=== PATIENT | female | born 1930 | race Caucasian/White ===

== ENCOUNTER 2017-04-19 09:55 | Emergency (ER) | payer MEDICARE, MEDICAID ==
[2017-04-19 10:11] VITALS: BMI 24.4
[2017-04-19] MEDS ORDERED: Sodium Chloride 0.9% 1,000 ML IV STA (10:31)
--- NOTE | 2017-04-19 10:34 | ED PDOC ---
Arrival/HPI - General Time Seen by Provider: 04/19/17 10:15 Historian: Patient, Family (Daughter who translated for patient) - History of Present Illness Narrative History of Present Illness (Text): 04/19/17 10:31 A 87 year old female, whose past medical history includes hypertension, osteoporosis and arthritis, presents to the emergency department complaining of generalized weakness. History obtained through daughter who translated for patient. Daughter reports patient has not been sleeping or eating well. She reports patient loss 30 pounds over the past 6 months. Patient complains of left lower leg pain for 1 week, but denies any fever, chills, nausea, vomiting, diarrhea, abdominal pain, chest pain, shortness of breath or any other complaints. PMD: Non-H provider Time/Duration: Other Symptom Course: Unchanged Quality: Other Context: Home Past Medical History - Provider Review Nursing Documentation Reviewed: Yes Family/Social History - Physician Review Nursing Documentation Reviewed: Yes Family/Social History: No Known Family HX Allergies/Home Meds Allergies/Adverse Reactions: Allergies No Known Allergies Allergy (Verified 04/19/17 10:10) Home Medications: Home Meds Medication Instructions Recorded Confirmed Aspirin [Ecotrin] 81 mg PO DAILY 04/19/17 04/19/17 Bimatoprost [Lumigan 2.5 ml] 2.5 ml OP HS 04/19/17 04/19/17 Brimonidine Tartrate [Alphagan P 5 ml OU BID 04/19/17 04/19/17 0.1 % Ophth] Dexlansoprazole [Dexilant] 60 mg PO DAILY 04/19/17 04/19/17 Donepezil HCl [Aricept] 10 mg PO DAILY 04/19/17 04/19/17 Ergocalciferol [Drisdol 50,000 1.25 mg PO QWK 04/19/17 04/19/17 Intl Units Cap] Gabapentin [Neurontin] 300 mg PO BID 04/19/17 04/19/17 Melatonin [Melatonin] 10 mg PO HS 04/19/17 04/19/17 Metoprolol Tartrate [Lopressor] 100 mg PO DAILY 04/19/17 04/19/17 Naproxen 375 mg PO DAILY 04/19/17 04/19/17 Timolol 0.25% Ophth [Timoptic 0.25 % OU BID 04/19/17 04/19/17 0.25% Ophth Soln] amLODIPine [Norvasc] 10 mg PO DAILY 04/19/17 04/19/17 Review of Systems - Physician Review All systems were reviewed & negative as marked: Yes - Review of Systems Constitutional: Fatigue, Weight Change, Other (decrease sleep). absent: Fevers , Night Sweats Respiratory: absent: SOB Cardiovascular: absent: Chest Pain Gastrointestinal: Appetite Changes. absent: Abdominal Pain, Diarrhea, Nausea, Vomiting Musculoskeletal: Other (left lower extremity pain) Physical Exam - Physical Exam Narrative Physical Exam (Text): Constitutional: No acute distress. Head: Normocephalic. Atraumatic. Eyes: PERRL. ENT: Moist mucous membranes. Neck: Supple. Cardiovascular: Regular rate. Chest: No tenderness. Respiratory: Clear to auscultation bilaterally. GI: Soft. Nontender. Nondistended. Back: No CVA tenderness. Musculoskeletal: No tenderness, swelling or erythema to left lower extremity. No tenderness or swelling of extremities. Skin: No rash. Neurologic: Alert, no focal deficit. Vital Signs Reviewed: Yes Vital Signs Temp Pulse Resp BP Pulse Ox 04/19/17 13:12 98.1 F 74 19 167/76 H 96 04/19/17 11:56 98 F 77 19 146/71 95 04/19/17 09:56 98.1 F 80 18 171/94 H 97 Temperature: Afebrile Blood Pressure: Hypertensive Pulse: Regular Respiratory Rate: Normal Appearance: Positive for: Well-Appearing, Non-Toxic, Comfortable Pain Distress: None Mental Status: Positive for: Alert and Oriented X 3 Medical Decision Making ED Course and Treatment: Spoke with reproduction technician, states ultrasound is negative for DVT. Report Date : 04/19/2017 12:57:13 Procedure: Chest xray Dictator : Jordan Vasquez MD IMPRESSION: No active disease. - Lab Interpretations Lab Results: 04/19/17 10:40 04/19/17 10:40 Lab Results 04/19/17 13:00: Urine Color Yellow, Urine Appearance Clear, Urine pH 7.5, Ur Specific [place] 1.015, Urine Protein Negative, Urine Glucose (UA) Negative, Urine Ketones 15 H, Urine Blood Negative, Urine Nitrate Negative, Urine Bilirubin Negative, Urine Urobilinogen 0.2, Ur Leukocyte Esterase Negative 04/19/17 10:40: Sodium 145, Potassium 3.7, Chloride 109 H, Carbon Dioxide 27, Anion Gap 13, BUN 10, Creatinine 0.6 L, Est GFR ( Amer) > 60, Est GFR ( Non-Af Amer) > 60, Random Glucose 103, Calcium 10.0, Total Bilirubin 1.3, AST 26 , ALT 28, Alkaline Phosphatase 70, Total Protein 7.4, Albumin 4.2, Globulin 3.2 , Albumin/Globulin Ratio 1.3 04/19/17 10:40: WBC 4.7, RBC 4.79, Hgb 12.6, Hct 40.3, MCV 84.1, MCH 26.3, MCHC 31.3, RDW 14.6 H, Plt Count 286, MPV 9.6, Gran % 72.1 H, Lymph % (Auto) 17.1 L, [place] % (Auto) 9.3 H, Eos % (Auto) 1.1 L, Baso % (Auto) 0.4, Gran # 3.41, Lymph # 0.8 L, [place] # 0.4, Eos # 0.1, Baso # 0.02 I have reviewed the lab results: Yes - RAD Interpretation Radiology Orders: 04/19/17 10:31 CHEST PORTABLE [RAD] Stat DUPLEX LOWER EXTRM VEIN LEFT [US] Stat - Medication Orders Current Medication Orders: Sodium Chloride (Sodium Chloride 0.9%) 1,000 mls @ 300 mls/hr IV .Q3H20M STA Stop: 04/19/17 13:50 Last Admin: 04/19/17 11:54 Dose: 300 mls/hr eMAR Start Stop Document 04/19/17 11:54 [place] (Rec: 04/19/17 11:54 [place] [facility] [id number]) Intravenous Solution Start Date 04/19/17 Start Time 11:00 Discontinued Medications Ketorolac Tromethamine (Toradol) 30 mg IVP STAT STA Stop: 04/19/17 12:57 Last Admin: 04/19/17 13:26 Dose: 30 mg MAR Pain Assessment Document 04/19/17 13:26 SRE (Rec: 04/19/17 13:28 SRE [id number]) Pain Reassessment Is this a pain reassessment? Yes Sleep Is patient sleeping during reassessment? No Presence of Pain Presence of Pain Yes Pain Scale Used Pain Scale Used Numeric Location Left, Right or Bilateral Bilateral Pain Location Body Site Leg Description Description Intermittent IVP Administration Document 04/19/17 13:26 SRE (Rec: 04/19/17 13:28 SRE [id number]) Charges for Administration # of IVP Administrations 1 - Scribe Statement The provider has reviewed the documentation as recorded by the Scribe Milly Barnes Provider Scribe Attestation: All medical record entries made by the Scribe were at my direction and personally dictated by me. I have reviewed the chart and agree that the record accurately reflects my personal performance of the history, physical exam, medical decision making, and the department course for this patient. I have also personally directed, reviewed, and agree with the discharge instructions and disposition. Disposition/Present on Arrival - Present on Arrival Any Indicators Present on Arrival: No - Disposition Have Diagnosis and Disposition been Completed?: Yes Diagnosis: Loss of appetite Disposition: HOME/ ROUTINE Disposition Time: 13:00 Patient Plan: Discharge Condition: STABLE Discharge Instructions (ExitCare): Insomnia (ED) Referrals: Rachna Jiménez, [Primary Care Provider] - Follow up with primary
[2017-04-19 11:03] LABS: BASO # 0.02 K/mm3 (0.0-2.0); BASO % 0.4 % (0.0-3.0); EOS # 0.1 (0.0-0.7); EOS % 1.1 % (1.5-5.0); GRAN # 3.41 (1.4-6.5); GRAN % 72.1 % (50.0-68.0); HEMATOCRIT 40.3 % (36.0-48.0); LYMPH # 0.8 (1.2-3.4); LYMPH % 17.1 % (22.0-35.0); MEAN CELL VOLUME 84.1 fl (80.0-105.0); MEAN CORPUSCULAR HEMOGLOBIN 26.3 pg (25.0-35.0); MEAN CORPUSCULAR HGB CONC 31.3 g/dl (31.0-37.0); MEAN PLATELET VOLUME 9.6 fl (7.0-11.0); MONO # 0.4 (0.1-0.6); MONO % 9.3 % (1.0-6.0); RED CELL DISTRIBUTION WIDTH 14.6 % (11.5-14.5); WHITE BLOOD COUNT 4.7 10^3/ul (4.5-11.0)
[2017-04-19 11:06] LABS: ALB/GLOB RATIO 1.3 (1.1-1.8); ALKALINE PHOSPHATASE 70 U/L (38-126); ALT/SGPT 28 U/L (7-56); AST/SGOT 26 U/L (14-36); BILIRUBIN,TOTAL 1.3 mg/dL (0.2-1.3); BLOOD UREA NITROGEN 10 mg/dL (7-21); CARBON DIOXIDE 27 mmol/L (21-33); CHLORIDE 109 mmol/L (98-107); GFR AFRICAN-AMERICAN > 60; GLUCOSE,RANDOM 103 mg/dL (70-110); POTASSIUM 3.7 mmol/L (3.6-5.0); SODIUM 145 mmol/L (132-148); TOTAL PROTEIN 7.4 g/dL (5.8-8.3)
--- NOTE | 2017-04-19 12:59 | RAD ---
HISTORY: weakness COMPARISON: No prior. FINDINGS: LUNGS: No active pulmonary disease. PLEURA: No significant pleural effusion identified, no pneumothorax apparent. CARDIOVASCULAR: Mild cardiomegaly OSSEOUS STRUCTURES: No significant abnormalities. VISUALIZED UPPER ABDOMEN: Normal. OTHER FINDINGS: None. IMPRESSION: No active disease.
[2017-04-19 13:12] VITALS: RESP 19
[2017-04-19 13:15] LABS: PH,URINE 7.5 (4.7-8.0); URINE BILIRUBIN NEGATIVE (NEGATIVE); URINE BLOOD NEGATIVE (NEGATIVE); URINE GLUCOSE (UA) NEGATIVE (NEGATIVE); URINE KETONE 15 mg/dL (NEGATIVE); URINE LEUKOCYTE ESTERASE NEGATIVE Leu/uL (NEGATIVE); URINE PROTEIN NEGATIVE mg/dL (<30 mg/dL); URINE UROBILINOGEN 0.2 E.U./dL (<1 E.U./dL)
[2017-04-19 13:16] LABS: URINE APPEARANCE CLEAR (CLEAR); URINE COLOR YELLOW (YELLOW)
[2017-04-19 13:17] VITALS: BP 167/76; PULSE 74; TEMP 98.1; O2SAT 96
--- NOTE | 2017-04-19 15:38 | US ---
PROCEDURE: Left lower extremity venous US HISTORY: Leg pain and swelling. Evaluate for DVT. PHYSICIAN(S): Vikas West MD. TECHNIQUE: Duplex sonography and color-flow Doppler with graded compression were used to evaluate the deep venous system of the left lower extremity. FINDINGS: The visualized deep venous system of the left lower extremity is sonographically normal and compressible. Normal wave forms and augmentation are seen. There is no sonographic evidence for deep venous thrombosis in the visualized segments of the left lower extremity. IMPRESSION: 1. No sonographic evidence for deep venous thrombosis in the visualized segments of the left lower extremity.
--- NOTE | 2017-04-20 07:41 | CARD ---
APPROVED REPORT EKG Measurement Heart [id number] <Conclusion> Sinus rhythm with premature atrial complexes Left axis deviation Possible Septal CO, age unknown
== END 2017-04-19 13:47 | disposition home or self-care (01) ==
LOC: ED 09:55
DX: R63.0 Anorexia (principal); I10 Essential (primary) hypertension
CPT/HCPCS: 71010; 80053; 81003; 85025; 93005; 93971; 96374; 99285; J1885; J7040